=== PATIENT | male | born 2000 | race Caucasian/White ===

== ENCOUNTER 2019-03-20 02:11 | Emergency (ER) | payer OTHER ==
[~2019-03-20] VITALS: Ht 172.7 cm; Wt 65.9 kg
[2019-03-20] MEDS ORDERED: LIDOCAINE 1% MDV 20ML VIAL SC ONE (04:30)
[2019-03-20 05:29] VITALS: BP 131/63
== END 2019-03-20 05:32 | disposition home or self-care (01) ==
LOC: M ED 02:11
DX: S61.211A Laceration without foreign body of left index finger without damage to nail, initial encounter (principal); S61.213A Laceration without foreign body of left middle finger without damage to nail, initial encounter; W25.XXXA Contact with sharp glass, initial encounter; Y92.89 Other specified places as the place of occurrence of the external cause

== ENCOUNTER 2019-03-24 17:37 | Emergency (ER) | payer OTHER ==
[~2019-03-24] VITALS: Ht 172.7 cm; Wt 65.9 kg
[2019-03-24] MEDS ORDERED: [UNRECOGNIZED DRUG - OTHER] (17:43)
[2019-03-24] MEDS ORDERED: ACETAMINOPHEN 500 MG TAB PO ONE (20:45)
[2019-03-24] MEDS ORDERED: ONDANSETRON 4 MG ORAL DISINTEGRATING TAB (Q0162 PER 1MG) PO ONE (20:45)
[2019-03-24] MEDS ORDERED: NS 1,000 ML IV ONE (20:45)
[2019-03-24 21:01] LABS: BASO # 0.1 10^3/uL (0.0-0.2); BASO % 0.4 % (0.0-1.0); HEMATOCRIT 46.3 % (42.0-52.0); HEMOGLOBIN 16.4 g/dl (13.5-17.5); LYMPH # 1.3 10^3/uL (1.5-6.5); LYMPH % 9.1 % (24.0-44.0); MEAN CORPUSCULAR HEMOGLOBIN 30.3 pg (27.0-33.0); MEAN CORPUSCULAR HGB CONC 35.4 g/dl (32.0-36.5); MEAN CORPUSCULAR VOLUME 85.6 fl (80.0-96.0); MONO # 1.1 10^3/uL (0.0-0.8); MONO % 7.9 % (0.0-5.0); NEUTROPHILS # 11.4 10^3/uL (1.8-7.7); NEUTROPHILS % 82.3 % (36.0-66.0); PLATELET COUNT, AUTOMATED 189 10^3/uL (150-450); RED BLOOD COUNT 5.41 10^6/uL (4.30-6.10); WHITE BLOOD COUNT 13.8 10^3/uL (4.0-10.0)
[2019-03-24 21:17] LABS: BLOOD UREA NITROGEN 9 MG/DL (7-18); CALCIUM LEVEL 9.1 MG/DL (8.5-10.1); CARBON DIOXIDE LEVEL 28 MEQ/L (21-32); CHLORIDE LEVEL 103 MEQ/L (98-107); CREATININE FOR GFR 1.12 MG/DL (0.70-1.30); GLUCOSE, FASTING 92 MG/DL (70-100); POTASSIUM SERUM 3.9 MEQ/L (3.5-5.1); SODIUM LEVEL 138 MEQ/L (136-145)
[2019-03-24 21:23] LABS: INFLUENZA A AMPLIFICATION NEGATIVE (NEGATIVE); INFLUENZA B AMPLIFICATION NEGATIVE (NEGATIVE)
[2019-03-24] MEDS ORDERED: ACET-897 PO (23:14)
[2019-03-24] MEDS ORDERED: ONDA4TAB6 PO (23:14)
[2019-03-24] MEDS ORDERED: AUGM875T28 PO (23:21)
[2019-03-24 23:30] VITALS: BP 115/58
== END 2019-03-24 23:34 | disposition home or self-care (01) ==
LOC: M ED 17:37
DX: S61.412A Laceration without foreign body of left hand, initial encounter (principal); X58.XXXA Exposure to other specified factors, initial encounter; Y92.9 Unspecified place or not applicable; Y93.9 Activity, unspecified; Y99.9 Unspecified external cause status; E86.0 Dehydration; R11.0 Nausea; R50.9 Fever, unspecified; B34.9 Viral infection, unspecified; Z77.098 Contact with and (suspected) exposure to other hazardous, chiefly nonmedicinal, chemicals
CPT/HCPCS: 80048; 85025; 87502; 87880; 96360; 96361; 99284; Q0162